=== PATIENT | female | born 1980 | race African-American/Black ===

== ENCOUNTER 2022-03-16 01:14 | Inpatient (IN) | payer OTHER ==
[2022-03-16 02:25] VITALS: BMI 21.7
[2022-03-16] MEDS: Acetaminophen 500 MG TAB PO PRN ×2 (04:27→23:45)
[2022-03-16] MEDS: traMADol HCl 50 MG TAB PO PRN ×3 (04:27→23:45)
[2022-03-16] MEDS: Sodium Chloride 0.9% 1,000 ML IV SCH ×3 (04:30→23:46)
[2022-03-16] MEDS: Doxycycline 100 MG in Sodium Chloride 0.9% 100 ML IVPB SCH ×2 (04:37→16:22)
[2022-03-16] MEDS ORDERED: metroNIDAZOLE 500 MG in Premix Bag 1 BAG IVPB SCH ×2 (06:00→10:00)
[2022-03-16] MEDS ORDERED: Ondansetron ODT 4 MG TAB PO PRN (06:58)
[2022-03-16] MEDS ORDERED: Sodium Chloride 0.9% 100 ML ONE (08:30)
[2022-03-16] MEDS: Famotidine 20 MG TAB PO SCH ×2 (08:36→23:46)
[2022-03-16] MEDS: cefTRIAXone\\ROCEPHIN 2 GM in Sodium Chloride 0.9% 100 ML IVPB SCH (08:36)
[2022-03-16 10:40] LABS: Amphetamine Detected (NotDetected); Barbiturates Screen Not Detected (NotDetected); Benzodiazepine Screen Not Detected (NotDetected); Cocaine Metabolite Screen Detected (NotDetected); Methadone Not Detected (NotDetected); Methamphetamine Detected (NotDetected); Opiate Screen Detected (NotDetected); Oxycodone Screen Not Detected (NotDetected); Phencyclidine (PCP) Not Detected (NotDetected); THC/Cannabinoid Screen Not Detected (NotDetected); Tricyclic Screen Not Detected (NotDetected)
[2022-03-16] MEDS: metroNIDAZOLE 500 MG in Premix Bag 1 BAG IVPB SCH (17:59)
[2022-03-17] MEDS: metroNIDAZOLE 500 MG in Premix Bag 1 BAG IVPB SCH ×3 (02:37→17:47)
[2022-03-17] MEDS: Doxycycline 100 MG in Sodium Chloride 0.9% 100 ML IVPB SCH ×2 (04:59→16:38)
[2022-03-17] MEDS: Sodium Chloride 0.9% 1,000 ML IV SCH ×3 (06:18→23:36)
[2022-03-17] MEDS: cefTRIAXone\\ROCEPHIN 2 GM in Sodium Chloride 0.9% 100 ML IVPB SCH (07:55)
[2022-03-17] MEDS: Famotidine 20 MG TAB PO SCH ×2 (07:59→20:51)
[2022-03-17] MEDS: traMADol HCl 50 MG TAB PO PRN ×3 (08:02→22:50)
[2022-03-17] MEDS: Acetaminophen 500 MG TAB PO PRN (16:37)
[2022-03-18] MEDS: metroNIDAZOLE 500 MG in Premix Bag 1 BAG IVPB SCH ×3 (01:55→18:39)
[2022-03-18] MEDS: Acetaminophen 500 MG TAB PO PRN (04:15)
[2022-03-18] MEDS: Doxycycline 100 MG in Sodium Chloride 0.9% 100 ML IVPB SCH ×2 (04:16→16:33)
[2022-03-18] MEDS: Sodium Chloride 0.9% 1,000 ML IV SCH ×3 (06:29→20:40)
[2022-03-18] MEDS: Acetaminophen 500 MG TAB PO SCH ×3 (08:06→20:38)
[2022-03-18] MEDS: cefTRIAXone\\ROCEPHIN 2 GM in Sodium Chloride 0.9% 100 ML IVPB SCH (08:07)
[2022-03-18] MEDS: Famotidine 20 MG TAB PO SCH ×2 (11:03→20:40)
[2022-03-18] MEDS: traMADol HCl 50 MG TAB PO PRN ×2 (16:33→23:17)
[2022-03-19] MEDS: Sodium Chloride 0.9% 1,000 ML IV SCH ×3 (00:31→15:36)
[2022-03-19] MEDS: Acetaminophen 500 MG TAB PO SCH ×5 (01:34→20:52)
[2022-03-19] MEDS: metroNIDAZOLE 500 MG in Premix Bag 1 BAG IVPB SCH ×3 (01:34→17:39)
[2022-03-19] MEDS: Doxycycline 100 MG in Sodium Chloride 0.9% 100 ML IVPB SCH ×2 (05:38→16:46)
[2022-03-19] MEDS: traMADol HCl 50 MG TAB PO PRN ×3 (05:39→20:53)
[2022-03-19] MEDS: cefTRIAXone\\ROCEPHIN 2 GM in Sodium Chloride 0.9% 100 ML IVPB SCH (08:15)
[2022-03-19] MEDS: Famotidine 20 MG TAB PO SCH ×2 (08:17→20:53)
[2022-03-19 09:59] LABS: #Basophils 0.1 10x3/uL (0.0-0.2); #Eosinphils 0.1 10x3/uL (0.0-0.5); #Monocytes 1.3 10x3/uL (0.0-1.1); #Neutrophils 10.9 10x3/uL (1.5-8.4); %Basophils 0.4 % (0.0-2.0); %Eosinophils 0.6 % (0.0-6.0); %Lymphocytes 11.6 % (18.0-47.0); %Monocytes 8.9 % (0.0-10.0); %Neutrophils 77.4 % (40.0-75.0); Hemoglobin 11.6 g/dL (12.0-15.5); Mean Corpuscular HGB CONC 33.9 g/dL (32.0-36.0); Mean Corpuscular Hemoglobin 29.1 pg (27.0-33.0); Mean Corpuscular Volume 85.7 fl (81.6-98.3); Mean Platelet Volume 8.5 fl (7.4-10.4); Platelet Count 470 10x3/uL (150-450); RBC Distribution Width 12.9 % (11.5-14.5); Red Blood Cell (RBC) Count 3.99 10x6/uL (3.90-5.03); White Blood Cell (WBC) Count 14.1 10x3/uL (3.5-10.5)
[2022-03-19 10:04] LABS: INR-International Normal Ratio 1.1; PTT 27.6 sec (22.0-33.0); Prothrombin Time 12.2 sec (9.5-12.1)
[2022-03-19] MEDS ORDERED: Sodium Bicarbonate 2.5 MEQ/5 ML VIAL ONE (10:52)
[2022-03-19] MEDS ORDERED: Lidocaine 1% PF 5 ML VIAL ONE (10:53)
[2022-03-20] MEDS: Acetaminophen 500 MG TAB PO SCH ×4 (00:26→21:03)
[2022-03-20] MEDS: traMADol HCl 50 MG TAB PO PRN ×5 (01:17→21:16)
[2022-03-20] MEDS: metroNIDAZOLE 500 MG in Premix Bag 1 BAG IVPB SCH ×3 (01:18→17:57)
[2022-03-20] MEDS: Sodium Chloride 0.9% 1,000 ML IV SCH ×2 (01:18→09:19)
[2022-03-20] MEDS: Doxycycline 100 MG in Sodium Chloride 0.9% 100 ML IVPB SCH ×3 (05:52→17:54)
[2022-03-20] MEDS: Famotidine 20 MG TAB PO SCH ×2 (07:38→21:16)
[2022-03-20] MEDS: cefTRIAXone\\ROCEPHIN 2 GM in Sodium Chloride 0.9% 100 ML IVPB SCH (07:47)
[2022-03-20] MEDS ORDERED: metroNIDAZOLE 500 MG TAB PO SCH (23:45)
[2022-03-21] MEDS: Acetaminophen 500 MG TAB PO SCH ×2 (02:41→07:10)
[2022-03-21] MEDS: Sodium Chloride 0.9% 1,000 ML IV SCH (02:41)
[2022-03-21] MEDS: traMADol HCl 50 MG TAB PO PRN ×2 (03:18→07:33)
[2022-03-21] MEDS: Famotidine 20 MG TAB PO SCH (07:32)
[2022-03-21] MEDS ORDERED: metroNIDAZOLE 500 MG TAB PO SCH ×2 (09:00)
[2022-03-21] MEDS ORDERED: Doxycycline 100 MG CAP PO SCH (09:00)
[2022-03-21] MEDS ORDERED: Cefdinir 300 MG CAP PO SCH (09:00)
[2022-03-21 11:54] VITALS: BP 113/74; TEMP 98.8
== END 2022-03-21 12:14 | disposition home or self-care (01) | DRG 759 ==
LOC: UNDOADMIN 01:14 → CSHPP 01:14
PROVIDERS: ADMIT Obstetrics & Gynecology; ATTEND Obstetrics & Gynecology
PROC: 0WJJ3ZZ Inspection of Pelvic Cavity, Percutaneous Approach (ICD-10-PCS; principal; 2022-03-19)
DX: N73.9 Female pelvic inflammatory disease, unspecified (principal); F17.210 Nicotine dependence, cigarettes, uncomplicated; F15.10 Other stimulant abuse, uncomplicated; F14.10 Cocaine abuse, uncomplicated; F13.10 Sedative, hypnotic or anxiolytic abuse, uncomplicated; Z88.8 Allergy status to other drugs, medicaments and biological substances; Z79.899 Other long term (current) drug therapy
CPT/HCPCS: 72192; 80306; 85025; 85610; 85730; J0696; J3490; J7050